=== PATIENT | male | born 1960 | race Caucasian/White ===

== ENCOUNTER 2016-07-28 08:06 | Emergency (ER) | payer BC, OTHER ==
[2016-07-28 08:24] VITALS: RESP 18; TEMP 98
[2016-07-28] MEDS ORDERED: KETOROLAC 30 MG/1 ML SDV IM ONE (08:26)
[2016-07-28] MEDS ORDERED: DIAZEPAM 5 MG PREPACK#4 BTL TAKEHOME ONE (08:27)
--- NOTE | 2016-07-28 08:29 | EDPHY ---
H & P Stated Complaint: c/o rt neck pain since looking up @ TV yesterday pm.- no trauma Time Seen by Provider: 07/28/16 08:21 HPI/ROS: CHIEF COMPLAINT: Right-sided cervical strain HISTORY OF PRESENT ILLNESS: The patient is a 55-year-old man who comes to the emergency department complaining of pain in his right lateral neck. He states that began hurting yesterday when he was looking upwards at a television. He states that he had something similar in his low back several years ago was diagnosed with a pinched nerve. His symptoms improved with muscle relaxants. Pain does not radiate down his arm. It is in his right trapezius muscle. It hurts with looking to the right or looking up. No pain with axial loading. No paresthesias or weakness. No numbness. No chest pain or shortness of breath. No fevers or infections. REVIEW OF SYSTEMS: Constitutional: denies: chills, fever, recent illness, recent injury EENTM: denies: blurred vision, double vision, nose congestion Respiratory: denies: cough, shortness of breath Cardiac: denies: chest pain, irregular heart rate, lightheadedness, palpitations Gastrointestinal/Abdominal: denies: abdominal pain, diarrhea, nausea, vomiting, blood streaked stools Genitourinary: denies: dysuria, frequency, hematuria, pain Musculoskeletal: See HPI Skin: denies: lesions, rash, jaundice, bruising Neurological: denies: headache, numbness, paresthesia, tingling, dizziness, weakness Hematologic/Lymphatic: denies: blood clots, easy bleeding, easy bruising Immunologic/allergic: denies: HIV/AIDS, transplant EXAM: GENERAL: Well-appearing, well-nourished and in no acute distress. HEAD: Atraumatic, normocephalic. EYES: Pupils equal round and reactive to light, extraocular movements intact, sclera anicteric, conjunctiva are normal. ENT: TMs normal, nares patent, oropharynx clear without exudates. Moist mucous membranes. NECK: No pain with palpation. Mild spasming of trapezius muscle. No midline tenderness. No step-offs. No deformities. LUNGS: Breath sounds clear to auscultation bilaterally and equal. No wheezes rales or rhonchi. HEART: Regular rate and rhythm without murmurs, rubs or gallops. ABDOMEN: Soft, nontender, normoactive bowel sounds. No guarding, no rebound. No masses appreciated. BACK: No CVA tenderness, no spinal tenderness, step-offs or deformities EXTREMITIES: Normal range of motion, no pitting or edema. No clubbing or cyanosis. NEUROLOGICAL: Cranial nerves II through XII grossly intact. Normal speech, normal gait. 5/5 strength, normal movement in all extremities, normal sensation normal reflexes. Normal hand chefs. Normal pulses PSYCH: Normal mood, normal affect. SKIN: Warm, dry, normal turgor, no visible rashes or lesions. Source: Patient Exam Limitations: No limitations - Personal History Current Tetanus Diphtheria and Acellular Pertussis (TDAP): Yes - Medical/Surgical History Hx Asthma: No Hx Chronic Respiratory Disease: No Hx Diabetes: No Hx Cardiac Disease: No Hx Renal Disease: No Hx Cirrhosis: No Hx Alcoholism: No Other PMH: htn/high cholesterol/ prior back pain - Social History Smoking Status: Never smoked Alcohol Use: Sober Drug Use: None Constitutional: Initial Vital Signs Temperature (C) 36.6 C 07/28/16 08:15 Heart Rate 68 07/28/16 08:15 Respiratory Rate 18 07/28/16 08:15 Blood Pressure 153/90 H 07/28/16 08:15 O2 Sat (%) 98 07/28/16 08:15 O2 Delivery Mode Room Air Allergies/Adverse Reactions: No Known Allergies Allergy (Unverified 07/28/16 08:14) Home Medications: Medication Instructions Recorded Bystolic 07/28/16 Diazepam [Valium 5 MG (*)] 5 - 10 mg PO TID PRN #15 tab 07/28/16 Lisinopril-Hctz 10-12.5 mg Tab 07/28/16 Medical Decision Making ED Course/Re-evaluation: We discussed treatment options. It is difficult to tell whether this is a muscle spasm or neuropathy. Patient states that muscle relaxants worked well for him in the past. Will try this approach again as well as Toradol. Patient understands and agrees with this plan. We discussed imaging that may be necessary if his symptoms do not improve. He will follow up with his regular physician. We also discussed indications for returning to the emergency department. Differential Diagnosis: Partial list of the Differential diagnosis considered include but were not limited to; muscle strain, radiculopathy and although unlikely based on the history and physical exam, I also considered fracture, spinal cord compression, infection. I discussed these differential diagnoses and the plan with the patient as well as the usual and expected course. The patient understands that the diagnosis is provisional and that in medicine we are not always correct and that further workup is often warranted. Usual and customary warnings were given. All of the patient's questions were answered. The patient was instructed to return to the emergency department should the symptoms at all worsen or return, otherwise to followup with the physician as we discussed. - Data Points Medications Given: Discontinued Medications Diazepam (Valium 5 Mg Prepack#4) 1 btl TAKEHOME EDNOW ONE Stop: 07/28/16 08:28 Last Admin: 07/28/16 08:59 Dose: 1 btl Ketorolac Tromethamine (Toradol) 30 mg IM EDNOW ONE Stop: 07/28/16 08:27 Last Admin: 07/28/16 08:59 Dose: 30 mg Departure - Departure Disposition: Home, Routine, Self-Care Clinical Impression: Cervical strain, acute Qualifiers: Encounter type: initial encounter Qualified Code(s): S16.1XXA - Strain of muscle, fascia and tendon at neck level, initial encounter Condition: Fair Instructions: Diazepam (By mouth), Cervical Strain (ED) Referrals: [facility] [Other] - As per Instructions Prescriptions: Diazepam [Valium 5 MG (*)] 5 - 10 mg PO TID PRN #15 tab PRN Reason: Spasms
[2016-07-28 08:57] VITALS: BP 152/62; PULSE 84; O2SAT 97
== END 2016-07-28 08:58 | disposition home or self-care (01) ==
LOC: CED 08:06
DX: S16.1XXA Strain of muscle, fascia and tendon at neck level, initial encounter (principal); I10 Essential (primary) hypertension; X58.XXXA Exposure to other specified factors, initial encounter
CPT/HCPCS: J1885